=== PATIENT | female | born 1995 | race Caucasian/White ===

== ENCOUNTER 2021-02-27 09:49 | Emergency (ER) | payer OTHER, SELFPAY ==
--- NOTE | ~2021-02-27 | XR_ITS ---
EXAMINATION: XR chest 2V DATE: 02/27/2021 10:37 INDICATION: Chest pain. TECHNIQUE: Frontal and lateral views of the chest were obtained. COMPARISON: None. FINDINGS: The chest demonstrates clear lungs without pneumonia, pleural effusion, or pneumothorax. Th e heart size is normal. IMPRESSION: 1. No acute cardiopulmonary disease. Reviewed, dictated and finalized at location A.
[2021-02-27 09:48] VITALS: BP 124/81; PULSE 97; RESP 18; TEMP 37.1; O2SAT 100
--- NOTE | 2021-02-27 10:16 | ECG_ITS ---
Measurements Intervals [place] Rate: 70 P: -3 OR: 95 QRS: 57 QRSD: 90 T: 36 QT: 378 QTc: 410 Interpretive Statements SINUS RHYTHM WITH SINUS ARRHYTHMIA WITH SHORT OR INTERVAL BASELINE ARTIFACT- V1 BORDERLINE ECG Electronically Signed On 02-27-2021 10:53:34 CDT by Jeremiah Govea D.O.
--- NOTE | 2021-02-27 10:33 | ED.ANXIETY ---
HPI - Anxiety General Chief Complaint: Anxiety Stated Complaint: ANXIETY Time Seen by Provider: 02/27/21 09:56 Source: patient Mode of arrival: EMS Limitations: no limitations History of Present Illness HPI narrative: This is a 25-year-old female that presents to the emergency department for anxiety. Reports her and her boyfriend got into an argument. She started walking around. She mated to [employer] and started to feel really hot and panicky. Reports she felt like she could not breathe. They called EMS. Currently reports she is still just upset. She does have history of anxiety and depression, but is not on any medications for this. She has been hospitalized at a psychiatric facility in the past. She does have history of self-harm by cutting. She has had thoughts of harming herself before, but has no active plan to hurt herself today. Denies homicidal ideations, or visual or auditory hallucinations. Related Data Home Medications Medication Instructions Recorded Confirmed norelgestromin-ethin.estradiol 1 patch TRANSDERMAL Q7D 02/27/21 02/27/21 [Geremias] Allergies Allergy/AdvReac Type Severity Reaction Status Date / Time No Known Allergies Allergy Verified 02/27/21 10:09 Review of Systems Review of Systems: CONSTITUTIONAL: Denies fever CARDIOVASCULAR: Denies chest pain RESPIRATORY: Reports dyspnea. PSYCHIATRIC: Reports anxiety and depression. All systems reviewed & are unremarkable except as noted in HPI and below PMFSH Past Medical History Medical History (Updated 02/27/21 @ 13:51 by Nanci Prado PA-C) History of anxiety History of depression Social History Social History (Updated 02/27/21 @ 11:02 by Nanci Prado PA-C) Smoking status: Former smoker Alcohol intake: current Substance use: current Substance use type: marijuana Gender identity (if verbalized by the patient): Female Exam Narrative: GENERAL: Well-appearing, well-nourished, and in no acute distress. HEAD: Normocephalic, atraumatic. EYES: EOMI. ENT: Mucous membranes moist. Oropharynx without tonsillar hypertrophy exudate or other lesions. CHEST: Clear to auscultation. No respiratory distress. No wheezes rales or rhonchi HEART: Regular rate and rhythm. No murmur heard. Normal peripheral pulses. EXTREMITIES: Normal range of motion. No edema. SKIN: Warm, dry, no rash. NEURO: No focal deficits. Alert and oriented x3. PSYCH: Tearful, anxious Course Consultations Consultation #1: Crisis came to evaluate the patient who has given her resources and feels comfortable with discharge home Date: 02/27/21 Time: 13:44 Vital Signs Vital signs: Vital Signs Temperature 98.7 F 02/27/21 09:48 Pulse Rate 97 02/27/21 09:48 Respiratory Rate 18 02/27/21 09:48 Blood Pressure 124/81 02/27/21 09:48 Pulse Oximetry 100 02/27/21 09:48 Temperature 98.7 F 02/27/21 09:48 Pulse Rate 83 02/27/21 12:21 Respiratory Rate 16 02/27/21 12:21 Blood Pressure 130/64 02/27/21 12:21 Pulse Oximetry 99 02/27/21 12:21 MDM - Anxiety MDM Narrative Medical decision making narrative: Patient presents to the emergency department for what sounds like a panic attack today. Reports thoughts of harming herself in the past. She denies any currently and does not have an active plan. Her vitals are stable. No concerning findings on laboratory evaluation. Chest x-ray is normal. No concerning changes on EKG. Crisis came to evaluate patient and gave patient resources. Feels comfortable with discharge home. Patient does feel safe at home. Patient is stable and felt appropriate for further outpatient evaluation. She was given warnings to return to the ER Lab Data Attestation: I reviewed the patient's lab results. Result diagrams: 02/27/21 10:51 02/27/21 10:51 Labs: Lab Results 02/27/21 02/27/21 02/27/21 Range/Units 10:51 10:51 10:51 WBC 7.0 (4.5-10.0) K/mm3 RBC 4.01 L (4.2-5.
[2021-02-27 11:12] LABS: Basophils Percent Auto 0.4 % (0.2-1.2); Eosinophils Absolute Auto 0.1 K/mm3 (0-0.3); Eosinophils Percent Auto 1.9 % (0-4.4); Hematocrit 37.2 % (37.0-47.0); Hemoglobin 11.9 g/dL (12.0-15.0); Immature Granulocyte Absolute 0.02 K/mm3 (0.00-0.031); Immature Granulocyte Percent A 0.3 % (0-0.5); Lymphocytes Percent Auto 15.7 % (18.3-44.2); Mean Corpuscular Hemoglobin 29.7 pg (26-34); Mean Corpuscular Volume 92.8 fl (80-100); Mean Platelet Volume 10.2 fl (7.4-10.4); Monocytes Absolute Auto 0.4 K/mm3 (0.1-0.6); Neutrophils Absolute Auto 5.3 K/mm3 (1.3-6.7); Neutrophils Percent Auto 75.7 % (45.5-73.1); Platelet Count Result 173 k/mm3 (150-375); Red Blood Count 4.01 M/mm3 (4.2-5.4); Red Cell Distribution Width 12.9 % (11.5-14.5)
[2021-02-27 11:15] LABS: INR 0.9; Partial Thromboplastin Time 25.9 SECONDS (22.3-36.8); Prothrombin Time 12.3 Seconds (11.1-14.7)
[2021-02-27 11:21] LABS: Alanine Aminotransferase 11 U/L (4-35); Albumin Level 4.3 g/dL (3.5-5.1); Alkaline Phosphatase 44 U/L (38-126); Anion Gap 7 mmol/L (8-16); Aspartate Amino Transferase 20 U/L (14-36); Bilirubin,Total 0.2 mg/dL (0.2-1.3); Blood Urea Nitrogen 10 mg/dL (7-17); Calcium 8.8 mg/dL (8.4-10.2); Carbon Dioxide 22 mmol/L (22-30); Chloride 109 mmol/L (98-107); Estimated CRCL calculation 84 ml/min; Estimated Glomerular Filt Rate > 60; Glucose 94 mg/dL (65-110); Sodium 138 mmol/L (137-145)
[2021-02-27 11:26] LABS: Ethanol < 10 mg/dL (<10)
[2021-02-27 11:26] LABS: Add Urine Microscopic? YES; Appearance Urine Clear (Clear); Bilirubin Urine Negative (Negative); Blood Urine Negative (Negative); Color Urine Yellow (Yellow); Glucose Urine UA Negative (Negative); Ketones Urine Negative (Negative); Leukocyte Esterase Ur Trace LEU/UL (Negative); Mucus Urine Rare /lpf; Nitrate Urine Negative (Negative); Protein Urine Negative (Negative); RBC Urine 0-2 /hpf (0-2); Specific Grav Ur 1.019 (1.001-1.035); Squamous Epithelial Cell Urine Rare /hpf (Few); Urobilinogen Urine Negative mg/dL (<2.0); WBC Urine 0-3 /hpf
[2021-02-27 11:31] LABS: Troponin I < 0.012 ng/mL (0.000-0.034)
[2021-02-27] MEDS: LORazepam (*CRX) 0.5 MG TABLET PO (11:33)
[2021-02-27 11:45] LABS: Amphetamine Screen Urine Negative (Negative); Barbiturate Screen Urine Negative (Negative); Benzodiazepines Screen Urine Negative (Negative); Cannabinoid Screen Urine Positive (Negative); Cocaine Screen Urine Negative (Negative); Methadone Screen Urine Negative (Negative); Opiate Screen Urine Negative (Negative); Phencyclidine Screen Urine Negative (Negative)
[2021-02-27 12:21] VITALS: BP 130/64; PULSE 83; RESP 16; O2SAT 99
== END 2021-02-27 14:45 | disposition home or self-care (01) ==
PROVIDERS: Physician Assistant; Emergency Provider Emergency Medicine
DX: F41.9 Anxiety disorder, unspecified (principal); Z87.891 Personal history of nicotine dependence; R94.31 Abnormal electrocardiogram [ECG] [EKG]
CPT/HCPCS: 36415; 71046; 80053; 80307; 81001; 81025; 84443; 84484; 85025; 85610; 85730; 93005; 99284; A9270

== ENCOUNTER 2021-07-10 16:33 | Emergency (ER) | payer OTHER, SELFPAY ==
[2021-07-10 16:52] VITALS: BP 113/65; PULSE 99; RESP 20; TEMP 36.4; O2SAT 99
--- NOTE | 2021-07-10 17:20 | ED.DENTAL ---
HPI - Dental/Oral General Chief complaint: Dental/Oral Stated complaint: Lt Tooth Pain Time Seen by Provider: 07/10/21 17:15 Source: patient and RN notes reviewed Mode of arrival: ambulatory Limitations: no limitations History of Present Illness HPI Narrative: Patient presents today complaint of a 2-day history of left upper dental pain, with swelling that started today. She does have a dentist and has an appointment on July 31. Denies fever, shortness of breath, or difficulty swallowing. She currently rates pain 9/10 and has been taking Tylenol without relief. States the affected tooth has a cavity and is broken. MD Complaint: tooth pain Related Data Allergies Allergy/AdvReac Type Severity Reaction Status Date / Time No Known Allergies Allergy Verified 07/10/21 16:58 Review of Systems Review of Systems: CONSTITUTIONAL: Denies body aches, fever, chills, or sweats. EYES: Denies visual changes, redness, or discharge. ENT: Denies rhinorrhea, congestion, sore throat, or otalgia. CARDIOVASCULAR: Denies chest pain, palpitations, or edema.+ Dental pain RESPIRATORY: Denies cough or dyspnea. GASTROINTESTINAL: Denies abdominal pain, nausea, vomiting, or diarrhea. GENITOURINARY: Denies dysuria or hematuria. SKIN: Denies rash, itching, or wounds. MUSCULOSKELETAL: Denies back pain, joint pain, or myalgia. NEUROLOGIC: Denies headache, numbness, tingling, or weakness. PSYCH: Denies depression or anxiety. PMFSH Past Medical History Medical History History of anxiety History of depression Social History Social History Smoking status: Former smoker Alcohol intake: current Substance use: current Substance use type: marijuana Gender identity (if verbalized by the patient): Female Comments At time of signature, I have reviewed and agree with nursing past medical, surgical, social and family history unless otherwise noted. Please see nursing chart for further information. There is no relevant family history pertinent to the presenting complaint Exam Narrative: GENERAL: Well-appearing, well-nourished, and in no acute distress. HEAD: Normocephalic, atraumatic. EYES: EOMI. No redness or drainage. Conjunctivae normal. ENT: Mucous membranes pink and moist. Throat normal. Uvula midline. Tooth #16 has a lateral third of the tooth missing. Gumline appears normal. No facial swelling noted. NECK: Normal AROM. Supple. No lymphadenopathy. CHEST: No respiratory distress. EXTREMITIES: Normal range of motion. No edema. SKIN: Warm, dry, no rash. Capillary refill normal. Normal skin turgor. NEURO: No focal deficits. Alert and oriented x3. Gait steady. PSYCH: Normal affect. No signs of depression or anxiety. Course Course Level of Care: Express Care Visit Vital Signs Vital signs: Vital Signs Temperature 97.6 F 07/10/21 16:52 Pulse Rate 99 07/10/21 16:52 Respiratory Rate 20 07/10/21 16:52 Blood Pressure 113/65 07/10/21 16:52 Pulse Oximetry 99 07/10/21 16:52 Temperature 97.6 F 07/10/21 16:52 Pulse Rate 99 07/10/21 16:52 Respiratory Rate 20 07/10/21 16:52 Blood Pressure 113/65 07/10/21 16:52 Pulse Oximetry 99 07/10/21 16:52 Reviewed MDM - Dental/Oral Differential Diagnosis Differential diagnosis: Likely dental caries, toothache, dental abscess and fracture of tooth Critical Care Time Critical Care Time Critical Care Time: No Discharge Plan Discharge Clinical Impression: Dental abscess Patient Disposition: Home, Self-Care Condition: Stable Instructions: Antibiotic Form, Dental Abscess (ED) Additional Instructions: Please take the amoxicillin as prescribed until gone. Follow-up with your dentist as scheduled. Take an anti-inflammatory such as Aleve or ibuprofen for pain. Patient Language: Amharic Prescriptions: New amoxicillin 318
== END 2021-07-10 17:25 | disposition home or self-care (01) ==
PROVIDERS: Emergency Provider Nurse Practitioner
DX: K04.7 Periapical abscess without sinus (principal); Z87.891 Personal history of nicotine dependence
CPT/HCPCS: 99213; G0463

== ENCOUNTER 2022-05-07 15:11 | Emergency (ER) | payer OTHER, SELFPAY ==
[2022-05-07 15:20] VITALS: BP 101/59; PULSE 94; RESP 18; TEMP 36.7; O2SAT 100
--- NOTE | 2022-05-07 15:40 | ED.URI ---
HPI - URI/Sore Throat General Chief Complaint: Upper Respiratory Infection Stated Complaint: sorethroat Time Seen by Provider: 05/07/22 15:40 Source: patient Mode of arrival: ambulatory Limitations: no limitations History of Present Illness HPI Narrative: 26-year-old female presents with complaint of sore throat, headaches, body aches, fatigue, chills And lymph node swelling to neck or to 3 days. Is concerned that she has strep. denies nausea vomiting diarrhea. No cough or congestion. No known sick contacts. All systems reviewed and negative except as noted above. Related Data Home Medications Medication Instructions Recorded Confirmed norelgestromin 150 mcg-e.estradiol 1 patch DIRECTED 05/07/22 05/07/22 35 mcg/24 hr weekly transderm patch (Xulane) Allergies Allergy/AdvReac Type Severity Reaction Status Date / Time No Known Allergies Allergy Verified 05/07/22 15:42 Review of Systems Review of Systems: CONSTITUTIONAL: reports fever, chills, or sweats. EYES: Denies visual changes, redness, or discharge. ENT: Denies rhinorrhea, congestion . Reports sore throat. CARDIOVASCULAR: Denies chest pain, palpitations, or edema. RESPIRATORY: Denies cough or dyspnea. GASTROINTESTINAL: Denies abdominal pain, nausea, vomiting, or diarrhea. GENITOURINARY: Denies dysuria or hematuria. SKIN: Denies rash or itching. MUSCULOSKELETAL: Denies back pain, joint pain. Reports myalgia. NEUROLOGIC: Denies headache, numbness, or weakness. PSYCHIATRIC: Denies anxiety or depression. All other systems reviewed are negative, except as documented in HPI. [facility] Past Medical History Medical History History of anxiety History of depression Social History Social History Smoking status: Former smoker Alcohol intake: current Substance use: current Substance use type: marijuana Gender identity (if verbalized by the patient): Female Comments At time of signature, agree with nursing past medical, surgical, social and family history. There is no relevant family history pertinent to the presenting complaint. Exam Narrative: GENERAL: This is a well-nourished, well-developed patient. Patient ill appearing but no distress. HEAD: normocephalic, atraumatic. EYES: PERRL. Sclera clear/white. Vision is grossly intact. EARS: External ears normal, auditory canals clear and without drainage, TMs normal without perforation. Hearing grossly intact. NOSE: External nose normal with no obvious nasal discharge, nares without redness, no rhinorrhea. THROAT: Mucous membranes moist, Erythema and swelling to posterior pharynx, tonsils 1+ bilaterally. No exudates. NECK: Neck supple, tender with lymphadenopathy . No masses or thyromegaly. CARDIOVASCULAR: Regular rate and rhythm without murmurs, gallops, or rubs. RESPIRATORY: Clear to auscultation. Breath sounds equal bilaterally. No wheezes, rales, or rhonchi. SKIN: warm, Dry, intact with no suspicious lesions or rash, good texture and turgor. NEURO: awake, alert, and oriented to person, place and time. There were no obvious focal neurologic abnormalities. EXTREMITIES: No joint tenderness, effusion, or edema noted. Course Course Level of Care: Express Care Visit Vital Signs Vital signs: Vital Signs Temperature 36.7 C 05/07/22 15:20 Pulse Rate 94 05/07/22 15:20 Respiratory Rate 18 05/07/22 15:20 Blood Pressure 101/59 L 05/07/22 15:20 Pulse Oximetry 100 05/07/22 15:20 Oxygen Delivery Room Air 05/07/22 15:20 Temperature 36.7 C 05/07/22 15:20 Pulse Rate 94 05/07/22 15:20 Respiratory Rate 18 05/07/22 15:20 Blood Pressure 101/59 L 05/07/22 15:20 Pulse Oximetry 100 05/07/22 15:20 Oxygen Delivery Room Air 05/07/22 15:20 reviewed MDM - URI/Sore Throat MDM Narrative Medical decision making narrative: negative st
== END 2022-05-07 15:54 | disposition home or self-care (01) ==
PROVIDERS: Emergency Provider Nurse Practitioner Family
DX: J02.9 Acute pharyngitis, unspecified (principal); Z87.891 Personal history of nicotine dependence; Z20.822 Contact with and (suspected) exposure to COVID-19
CPT/HCPCS: 87081; 87426; 87804; 87880; 99213; C9803; G0463

== ENCOUNTER 2024-04-05 11:10 | Inpatient (IN) | payer OTHER, SELFPAY ==
[2024-04-05] VITALS (98 sets, daily range): BP systolic 82–140; BP diastolic 32–105; PULSE 73–278; RESP 18–20; TEMP 36.5–37.1; O2SAT 79–100; BMI 32.3
--- NOTE | 2024-04-05 13:15 | LDADM ---
This patient, Zayra Paulino, was admitted to Labor/Delivery/Recovery 104 on 04/05/24 at 11:10. Plans for labor, pain management and were discussed with patient. Patient/family oriented to hospital policies and general routines including ID bracelet, bed and alarms, visiting hours, pain management, procedures, bathroom and other care routines, personal items, smoking policy, room service/diet and guest tray routines, infant security routines, and visiting hours. Patient/Family are encouraged to report perceived risks to care and to ask questions if they do not understand what they are told or what they should do. See [facility]BIX for further documentation.
[2024-04-05 13:42] LABS: Basophils Absolute Auto 0.1 K/mm3 (0.0-0.1); Basophils Percent Auto 0.5 % (0.2-1.2); Eosinophils Absolute Auto 0.2 K/mm3 (0-0.3); Eosinophils Percent Auto 0.9 % (0-4.4); Hematocrit 39.7 % (37.0-47.0); Hemoglobin 13.1 g/dL (12.0-15.0); Immature Granulocyte Percent A 1.1 % (0-0.5); Lymphocytes Absolute Auto 1.67 K/mm3 (0.9-3.2); Lymphocytes Percent Auto 9.4 % (18.3-44.2); Mean Corpuscular Hemoglobin 30.9 pg (26-34); Mean Corpuscular Volume 93.6 fl (80-100); Mean Platelet Volume 10.4 fl (7.4-10.4); Monocytes Absolute Auto 1.1 K/mm3 (0.1-0.6); Monocytes Percent Auto 6.4 % (2.6-8.5); Neutrophils Absolute Auto 14.5 K/mm3 (1.3-6.7); Neutrophils Percent Auto 81.7 % (45.5-73.1); Platelet Count Result 244 k/mm3 (150-375); Red Blood Count 4.24 M/mm3 (4.2-5.4); Red Cell Distribution Width 13.4 % (11.5-14.5); White Blood Count 17.8 K/mm3 (4.5-10.0)
--- NOTE | 2024-04-05 14:12 | WPDOBADMIT ---
Obstetrics - Admit Note Admission Note: record reviewed. No pertinent additions to the history and/or any subsequent changes in the physical findings that are not consistent with the expected course of the were found. Patient admitted for labor, SVE 5cm. Contractions q2-3 min. FHR category I. Expectant management. Planning unepiduralized delivery. Additions to the history and/or subsequent changes in the physical findings follow. None.
[2024-04-05 14:31] LABS: HIV 1/2 Ab P24 Ag Result Negative (Negative)
[2024-04-05 16:40] LABS: Rapid Plasma Reagin Non-Reactive (NonReactive)
[2024-04-05] MEDS: fentaNYL CITRATE INJ (*CRX) 100 MCG/2 ML VIAL IV PUSH (17:22)
[2024-04-05] MEDS: LACTATED RINGERS 1,000 ML 999 ML IV CONT (18:36)
--- NOTE | 2024-04-05 19:09 | WPDANESEPPF ---
Anes - Initial Pre Proc Eval Date/Time: 04/05/24 19:09 Surgeon: Robert Zimmer MD Pre Op Diagnosis: Labor Patient Data Age: 28 Gender: F Height: 1.68 m Weight: 91 kg Last Vital Signs Pulse 82 04/05/24 19:08 BP 108/58 L 04/05/24 19:08 Pulse Ox 100 04/05/24 19:05 O2 Del Method Room Air 04/05/24 13:15 Allergies Allergy/AdvReac Type Severity Reaction Status Date / Time No Known Allergies Allergy Verified 03/28/24 13:35 Home Medications Medication Instructions Recorded Confirmed Type ferrous sulfate 325 mg (65 mg 325 mg PO DAILY 03/28/24 03/28/24 History iron) tablet vits no.126-ferrous fum 1 tablet PO DAILY 03/28/24 03/28/24 History 28 mg iron-folic acid 800 mcg tablet (Classic ) Laboratory Tests 04/05/24 04/05/24 13:33 13:34 WBC 17.8 H K/mm3 (4.5-10.0) RBC 4.24 M/mm3 (4.2-5.4) Hgb 13.1 g/dL (12.0-15.0) Hct 39.7 % (37.0-47.0) MCV 93.6 fl (80-100) MCH 30.9 pg (26-34) MCHC 33.0 g/dl (32-36) RDW 13.4 % (11.5-14.5) Plt Count 244 k/mm3 (150-375) MPV 10.4 fl (7.4-10.4) Immature Gran % (Auto) 1.1 H % (0-0.5) Neut % (Auto) 81.7 H % (45.5-73.1) Lymph % (Auto) 9.4 L % (18.3-44.2) [place] % (Auto) 6.4 % (2.6-8.5) Eos % (Auto) 0.9 % (0-4.4) Baso % (Auto) 0.5 % (0.2-1.2) Lymph # (Auto) 1.67 K/mm3 (0.9-3.2) [place] # (Auto) 1.1 H K/mm3 (0.1-0.6) Eos # (Auto) 0.2 K/mm3 (0-0.3) Baso # (Auto) 0.1 K/mm3 (0.0-0.1) Abs Immat Gran (auto) 0.20 H K/mm3 (0.00-0.031) Absolute Neuts (auto) 14.5 H K/mm3 (1.3-6.7) Absolute Nucleated RBC 0.000 K/mm3 (0.0-0.012) Nucleated RBC % 0.0 % (0.0-0.2) RPR Non-reactive (NonReactive) HIV 1&2 Ab/P24 Ag 4thGn Negative (Negative) Blood Type A Positive Antibody Screen Negative Patient hx anesthesia problems: none Family hx anesthesia problems: none Results Review: All pre-operative results and documents have been reviewed as part of the pre-operative evaluation. [facility] Past Medical History Medical History History of anxiety History of depression Family History Family History Grandparent Diabetes mellitus Cerebrovascular accident Grandparent Acute myocardial infarction Social History Social History Years smoked: 7 Smoking status: Former smoker Alcohol intake: current Substance use: current Substance use type: marijuana Do You Feel Safe in your Home?: Yes Lack of Transportation: No Lack of Food: Never True Current Housing: I Have Housing Concerned About Future Housing: No Difficulty Paying Gas/Electric Bills: No Difficulty Paying for Meds: No Currently Unemployed: No Education: High School Diploma/GED Difficulty w/ Childcare or Family Care: No Gender identity (if verbalized by the patient): Female Spiritual care concerns: No Anes - Eval Final PreProcedure Day of Procedure 04/05/24 19:09 Patient weight: obese Heart: regular rate and rhythm Lungs: clear to auscultation Neurological: alert and oriented ASA classification: III Emergent: no Anesthetic plan: proceed Anesthesia type and monitoring: regional epidural and standard monitoring Results Review: All pre-operative results and documents have been reviewed as part of the pre-operative evaluation. Informed Consent: The patient's anesthetic plan and its attendant risks and benefits were discussed with the patient/family/POA. Questions were solicited and answers provided to the satisfaction of the patient/family/POA.
[2024-04-05] MEDS: OXYTOCIN 30 UNITS/NS 500 ML 30 UNITS/500 ML BAG 999 UNITS IV CONT (23:02)
--- NOTE | 2024-04-05 23:12 | PM.OBPRVD ---
OB - Vaginal Delivery Note Procedure Delivery date: 04/05/24 Delivery augmentation: Rupture of Membranes Delivery monitor: External FHT and External Uterine Route of delivery: Episiotomy description: None Laceration Description: Periurethral (hemostatic) Specimen: No Quantitative Blood Loss (ml): 100 Anesthesia type: Epidural Disposition: Floor Complications: No immediate complications Narrative: See H&P and notes for details on patient's admission and labor. She progressed to complete cervical dilation and at the appropriate time began pushing. With adequate expulsive efforts by the mother, the baby's head was delivered without difficulty. Nuchal cord was not present. The baby's right shoulder was anterior and delivered under the pubic symphysis without difficulty. The posterior shoulder and the rest of the baby delivered without difficulty. The umbilical cord was doubly clamped and cut after 60 seconds of delayed cord clamping. Care of the was then assumed by the nursing staff. [place] Baby Date of : 04/05/24 Time of : 22:58 Gestational Age by Date: 40 gender: Male Weight (pounds): 8 Weight (ounces): 13 presentation: vertex position: Left Occiput Anterior Placenta delivery description: Expressed Cord Vessel Description: 3 Vessels and Delayed Cord Clamping
[2024-04-06] VITALS (10 sets, daily range): BP systolic 92–122; BP diastolic 46–68; PULSE 66–102; RESP 16–18; TEMP 36.5–37.2; O2SAT 98–100
[2024-04-06] MEDS: LACTATED RINGERS 1,000 ML 999 ML IV CONT (00:01)
[2024-04-06] MEDS: ACETAMINOPHEN 325 MG TABLET 650 MG PO ×2 (01:24→11:54)
--- NOTE | 2024-04-06 01:32 | OBPPTRN ---
Patient transferred to post room #280 via wheelchair. Support person present. Oriented to unit, room, information board, rooming in, admission packet and security measures. Patient verbalizes understanding.
[2024-04-06 05:51] LABS: Hematocrit 34.9 % (37.0-47.0); Hemoglobin 11.6 g/dL (12.0-15.0)
[2024-04-06] MEDS: MULTIVIT/MIN/PREN/FOL AC/IRON TABLET 1 TAB PO (06:24)
[2024-04-06] MEDS: IBUPROFEN 600 MG TABLET PO ×2 (06:30→18:40)
--- NOTE | 2024-04-06 07:27 | P.PNOB_ITS ---
OB - PN: Subj Subjective Date/time seen: 04/06/24 07:27 Patient comments: no complaints, pain well controlled, incisional pain, tolerating diet and flatus present OB - PN: Obj Data Labs 04/06/24 04:39 Labs: Laboratory Results - last 24 hr 04/05/24 04/05/24 04/06/24 13:33 13:34 04:39 WBC 17.8 H RBC 4.24 Hgb 13.1 11.6 L Hct 39.7 34.9 L MCV 93.6 MCH 30.9 MCHC 33.0 RDW 13.4 Plt Count 244 MPV 10.4 Immature Gran % (Auto) 1.1 H Neut % (Auto) 81.7 H Lymph % (Auto) 9.4 L [place] % (Auto) 6.4 Eos % (Auto) 0.9 Baso % (Auto) 0.5 Lymph # (Auto) 1.67 [place] # (Auto) 1.1 H Eos # (Auto) 0.2 Baso # (Auto) 0.1 Abs Immat Gran (auto) 0.20 H Absolute Neuts (auto) 14.5 H Absolute Nucleated RBC 0.000 Nucleated RBC % 0.0 RPR Non-reactive HIV 1&2 Ab/P24 Ag 4thGn Negative Blood Type A Positive Antibody Screen Negative OB - PN A/P Plan day: 1 Plan: routine care Comments: No problems, routine care Time Spent With Patient Time: Total time spent is greater than 50% in coordination of care (as documented) at patient's floor/unit and/or counseling patient: Exam Const: General: comfortable, no acute distress and alert Resp: Effort & Inspection: normal respiratory effort Auscultation: no crackles, no rales and no rhonchi Cardio: Rate: regular rate Heart sounds: no click, no murmurs and no rubs GI: Inspection: non-distended GI Palp: No Tenderness to palpation present (GI) Auscultation: normal bowel sounds Other: Incision - CDI Extrem: General: normal to inspection, no pedal edema and no calf tenderness
--- NOTE | 2024-04-06 13:43 | WPDANLDPN2 ---
Anes-Prog Note L&D Date/Time: 04/06/24 13:43 Comfortable throughout: labor and delivery Neuraxial method: epidural Epidural/Spinal procedure site: clean & non-tender Neuro status: Neuro function grossly intact. Cardiovascular status: normal Respiratory status: normal Airway patency: baseline Mental status: baseline Post-Op hydration status: normal Vital Signs: Last Vital Signs Temp 36.5 C 04/06/24 12:16 Pulse 102 H 04/06/24 12:16 Resp 18 04/06/24 12:16 BP 116/65 04/06/24 12:16 Pulse Ox 99 04/06/24 12:16 O2 Del Method Room Air 04/06/24 04:45 Pain score (VAS): 1 I/O: Intake & Output 04/05/24 04/06/24 04/06/24 23:59 07:59 15:59 Intake Total 1000 Output Total 100 Balance 1000 -100 Post-procedural complaints: none Patient feedback: Patient satisfied with anesthetic care.
--- NOTE | 2024-04-06 16:12 | PCCCNOTE ---
Recvd consult due to pt. scoring high on OB Stubstance Abuse screening. Pt. self admits to using THC during due to migraines and PTSD. No UDS or baby drug screen available or planned for. Pt. reports this is her second child. Pt's FOB Gricelda and 1st son Corey at bedside. Pt. reports the four of them will be living at [address] [place] [address], in [facility]. Pt. reports has all necessary baby supplies, and already established with [facility]. Pt. denies any prior DCFS involvement. Pt. reports her friends, her father, and FOB's mother will be supportive. and Counseling resources provided to pt. SERENA Tom aware of visit.
--- NOTE | 2024-04-06 16:51 | PC.NURSE ---
Mother verbalizes she is able to independently latch with appropriate positioning and alignment. She denies any nipple discomfort and is responsively . Mother declines any additional assistance or education at this time. Mother is encouraged to call for assistance if her infant doesn?t latch, pain with latching, questions or concerns. Mother voiced understanding of information shared along with the mom/baby guide for an additional resource. Reported to the Primary RN.
[2024-04-07] MEDS: IBUPROFEN 600 MG TABLET PO ×2 (03:48→14:30)
[2024-04-07] MEDS: MULTIVIT/MIN/PREN/FOL AC/IRON TABLET 1 TAB PO (07:32)
[2024-04-07 07:35] VITALS: BP 118/67; PULSE 75; RESP 16; TEMP 36.3; O2SAT 100
--- NOTE | 2024-04-07 08:36 | PM.OBPNVD ---
OB - PN: Subj Subjective Date/time seen: 04/07/24 08:36 Patient comments: no complaints, pain well controlled and tolerating diet OB - PN: Obj Data Labs 04/06/24 04:39 OB - PN A/P Plan day: 2 Plan: routine care and discharge home Time Spent With Patient Time: Total time spent is greater than 50% in coordination of care (as documented) at patient's floor/unit and/or counseling patient: Exam Const: General: comfortable and no acute distress Resp: Effort & Inspection: normal respiratory effort Auscultation: no rales, no rhonchi and no wheezes Cardio: Rate: regular rate Heart sounds: no click, no murmurs and no rubs GI: GI Palp: Yes Soft to palpation and No Tenderness to palpation present (GI) Auscultation: normal bowel sounds Extrem: General: normal to inspection, no pedal edema and no calf tenderness
--- NOTE | 2024-04-07 08:37 | PM.OBDSVD ---
DS: Admitting Diagnosis Discharge Date April 07 2024 Admitting Diagnosis term DS: Discharge Diagnosis Discharge Diagnosis (1) Term delivered: Code(s): O80 - Encounter for full-term uncomplicated delivery Status: Acute OB - DS: Summary OB Procedures : None OB Procedures Intrapartum: Spontaneous Vag Delivery OB Procedures: : None Peripartum Data Laceration Description: Periurethral (hemostatic) Episiotomy description: None Time Spent with Patient Time attestation: Total time spent providing and/or coordinating discharge services: Discharge Plan Discharge Discharging Clinician: Robert Zimmer Patient Disposition: Home, Self-Care Activity: pelvic rest Diet: regular Patient Instructions: Antibiotic Form Stand Alone Forms: General Discharge Information Follow-up/Referrals: Robert Zimmer MD [Physician] - Discharge Medications: Continued ferrous sulfate 325 mg (65 mg iron) Tablet 325 mg PO DAILY Classic 28 mg iron- 800 mcg Tablet 1 tablet PO DAILY Date of admission: 04/05/24 11:10 Primary Care Provider: UNKNOWN,DOCTOR Admitting Provider: Robert Zimmer Attending physician on admission: Robert Zimmer Condition: Stable
--- NOTE | 2024-04-07 08:45 | PC.NURSE ---
Consulted with patient to assess needs related to . Discussed with mother her successes, concerns and any questions she has. We reviewed working with the , supporting breast, good positioning, and waking infant to feed. Encouraged understanding the benefits of skin to skin, responding to feeding cues, frequencies of feeding 8-12 times in 24 hours (approximately 2-3 hours), duration of feedings, milk production, intake/output feeding sheet and signs of adequate intake encouraging swallowing at the breast. Reviewed positioning and alignment, supporting breast, off-centered (asymmetrical latch) and leading with the chin with big, open, wide gape. latched to the [left] breast. Education given to the mother of how to visualize the suckling (with good rocking jaw motion) swallows and how to listen for drinking at the breast. The was [able] to maintain latch with the shield. Without the shield he would not suck at all. Mom says she used the shield a few times but mostly was feeding without the shield. He was very sleepy at this feeding and mom was encouraged to keep him going for as long as he would. Reported this to Dr. Cates due to concerns with weight loss. seems sleepy but not lethargic; he wakes and cries and roots when undressed. Resources used to facilitate learning were used from the blue feeding sheet and name/number on board. Mother voiced understanding of the education shared, to call for assistance if the infant does not latch or if there is discomfort with . Reported to the Primary RN.
--- NOTE | 2024-04-07 17:40 | PC.NURSE ---
Insurance breast pump provided due to [mother's request]. Patient chose a [employer]omee pump and we measured her nipples at a 22mm so recommend a 24mm flange. Instructions given on cleaning, care, usage, that there should be no pain, pumping schedule for milk production, collection, and storage of human milk. We hooked the tubing to the pump and turned it on so she could see the different modes offered. Mother has the product manual and the QR codes for instruction videos. Mother voiced understanding of the education shared along with mom/baby guide and the pump measurement, flange fit handout for additional resource information. Reported to the Primary RN.
[2024-04-09 09:23] VITALS: BP 120/85; PULSE 74; RESP 18; TEMP 36.9; O2SAT 100
== END 2024-04-07 17:45 | disposition home or self-care (01) | DRG 560 ==
LOC: ANHLDR 17:00 → ANHOB2 04-06 02:00
PROVIDERS: Obstetrics & Gynecology; Admitting Provider Obstetrics & Gynecology; Visit Provider Obstetrics & Gynecology
DX: O77.0 Labor and delivery complicated by meconium in amniotic fluid (principal); Z37.0 Single live birth; Z3A.40 40 weeks gestation of pregnancy; O71.82 Other specified trauma to perineum and vulva
CPT/HCPCS: 36415; 85014; 85018; 85025; 86592; 86703; 86850; 86900; 86901; A9270; G0432; J2590; J2795; J3010; J7120